=== PATIENT | male | born 1980 | race Caucasian/White ===

== ENCOUNTER 2024-02-06 17:20 | Inpatient (IN) | payer SELFPAY ==
[2024-02-06] MEDS ORDERED: Lorazepam 2 MG/ML VIAL ONE (17:59)
[2024-02-06] MEDS: niCARdipine 50 MG, Admixture Fee 1 EACH in Sodium Chloride 0.9% 250 ML 230 ML IV SCH (19:00)
[2024-02-06] MEDS ORDERED: niCARdipine 25 MG/10 ML SDV ONE (19:14)
[2024-02-06] MEDS ORDERED: Senokot S 8.6-50 MG TAB PO PRN (19:19)
[2024-02-06] MEDS ORDERED: traMADol HCl 50 MG TAB PO PRN (19:19)
[2024-02-06] MEDS ORDERED: niCARdipine 40MG In NaCl 40 MG/200 ML BAG IVPB SCH (19:30)
[2024-02-06 20:17] VITALS: BMI 30.1
[2024-02-06 20:17] LABS: Troponin I 0.066 ng/mL (< 0.028)
[2024-02-06] MEDS ORDERED: Acetaminophen 325 MG TAB ONE (21:21)
[2024-02-06] MEDS ORDERED: Furosemide 40 MG (4 mL) VIAL ONE (21:21)
[2024-02-06] MEDS: Furosemide 40 MG (4 mL) VIAL SLOW IVP SCH (21:27)
[2024-02-06] MEDS: Acetaminophen 325 MG TAB PO PRN (21:27)
[2024-02-06 22:24] LABS: Troponin I 0.078 ng/mL (< 0.028)
[2024-02-06] MEDS ORDERED: Famotidine 20 MG TAB ONE (22:31)
[2024-02-06] MEDS: Famotidine 20 MG TAB PO SCH (22:51)
[2024-02-06 23:05] LABS: Anion Gap 20 mmol/L (10-20); BUN (Urea Nitrogen) 59 mg/dL (8.9-20.6); Calc. Creatinine Clearance 29 mL/min (70-130); Calcium 7.1 mg/dL (7.8-10.44); Carbon Dioxide 17 mmol/L (22-29); Chloride 113 mmol/L (98-107); Estimated GFR 16; Glucose 104 mg/dL (70-105); Phosphorus 5.5 mg/dL (2.3-4.7); Potassium 4.5 mmol/L (3.5-5.1); Sodium 145 mmol/L (136-145)
[2024-02-06] MEDS ORDERED: Heparin 10,000 UNITS/ 10 ML VIAL SLOW IVP SCH (23:45)
[2024-02-07 00:26] LABS: Hemoglobin 11.3 g/dL (14.0-18.0); Platelet Count 418 10x3/uL (130-400)
[2024-02-07] MEDS ORDERED: niCARdipine 25 MG/10 ML SDV ONE (00:42)
[2024-02-07] MEDS ORDERED: traMADol HCl 50 MG TAB ONE (00:46)
[2024-02-07] MEDS: traMADol HCl 50 MG TAB PO PRN ×3 (00:49→19:50)
[2024-02-07] MEDS: Labetalol HCl 100 MG/20 ML VIAL SLOW IVP PRN (03:21)
[2024-02-07 03:36] LABS: %Basophils 0.7 % (0.0-1.0); %Eosinophils 1.6 % (0.0-10.0); %Lymphocytes 21.2 % (21.0-51.0); %Monocytes 7.3 % (0.0-10.0); %Neutrophils 68.8 % (42.0-75.0); Hematocrit 33.1 % (42.0-52.0); Hemoglobin 10.6 g/dL (14.0-18.0); Mean Corpuscular Volume 87.3 fL (78.0-98.0); Mean Platelet Volume 9.3 fL (7.4-10.4); Platelet Count 383 10x3/uL (130-400); RBC Distribution Width 13.2 % (11.5-14.5); Red Blood Cell (RBC) Count 3.79 mill/uL (4.70-6.10)
[2024-02-07 03:52] LABS: Hemoglobin A1c 5.3 % (4.0-6.0)
[2024-02-07 03:56] LABS: INR-International Normal Ratio 1.2; PTT 39.1 sec (22.9-36.1); Prothrombin Time 14.9 sec (12.0-14.7)
[2024-02-07 04:04] LABS: ALT (SGPT) 20 U/L (8-55); AST (SGOT) 20 U/L (5-34); Albumin 3.4 g/dL (3.5-5.0); Alkaline Phosphatase 78 U/L (40-110); Anion Gap 20 mmol/L (10-20); BUN (Urea Nitrogen) 60 mg/dL (8.9-20.6); Bilirubin, Total 0.2 mg/dL (0.2-1.2); Calc. Creatinine Clearance 25 mL/min (70-130); Calcium 6.8 mg/dL (7.8-10.44); Carbon Dioxide 14 mmol/L (22-29); Cardiac Risk 4.3 (Less than 4.5); Chloride 110 mmol/L (98-107); Cholesterol 191 mg/dl (< 200 Desired); Estimated GFR 16; Globulin 3.4 g/dL (2.4-3.5); Glucose 79 mg/dL (70-105); HDL Cholesterol 44 mg/dL (>60 Neg Risk); LDL Cholesterol, Calculated 117 mg/dL; Potassium 4.5 mmol/L (3.5-5.1); Protein, Total 6.8 g/dL (6.0-8.3); Sodium 139 mmol/L (136-145); Triglycerides 152 mg/dL (Less than 150)
[2024-02-07] MEDS: Heparin 25,000 units/D5W 500 ML IVPB SCH (04:08)
[2024-02-07] MEDS: Cyclobenzaprine 10 MG TAB PO SCH (04:52)
[2024-02-07] MEDS: Calcium Carbonate 500 MG ChewTAB PO SCH (04:52)
[2024-02-07] MEDS: Sodium Bicarbonate 150 MEQ in Dextrose 5% in Water 1,000 ML IV SCH (05:15)
[2024-02-07 05:38] LABS: Creatinine, Urine 23.61 mg/dL (63-166)
[2024-02-07] MEDS: Amlodipine 10 MG TAB PO SCH (08:31)
[2024-02-07] MEDS: hydrALAZINE 25 MG TAB PO SCH (10:13)
[2024-02-07 13:40] LABS: Complement-C3 112 mg/dL (83-185); Complement-C4 36 mg/dL (15-53)
[2024-02-07 13:59] LABS: Hep C IgG Ab NONREACTIVE S/CO (NonReactive)
[2024-02-07 16:05] LABS: INR-International Normal Ratio 1.1; Prothrombin Time 14.5 sec (12.0-14.7)
[2024-02-07 16:06] LABS: PTT 51.9 sec (22.9-36.1)
[2024-02-07 16:49] VITALS: BMI 25.9
[2024-02-07] MEDS: Famotidine 20 MG TAB PO SCH (19:49)
[2024-02-08 05:26] LABS: #Basophils 0.11 10x3/uL (0.0-0.2); %Basophils 0.8 % (0.0-1.0); %Eosinophils 2.6 % (0.0-10.0); %Lymphocytes 24.1 % (21.0-51.0); %Monocytes 6.7 % (0.0-10.0); %Neutrophils 65.3 % (42.0-75.0); Hematocrit 33.7 % (42.0-52.0); Mean Corpuscular HGB CONC 32.6 g/dL (32.0-36.0); Mean Corpuscular Hemoglobin 28.2 pg (27.0-31.0); Mean Corpuscular Volume 86.4 fL (78.0-98.0); Mean Platelet Volume 9.9 fL (7.4-10.4); Platelet Count 412 10x3/uL (130-400); RBC Distribution Width 13.5 % (11.5-14.5)
[2024-02-08 05:33] LABS: Anion Gap 18 mmol/L (10-20); BUN (Urea Nitrogen) 54 mg/dL (8.9-20.6); Calc. Creatinine Clearance 23 mL/min (70-130); Calcium 6.9 mg/dL (7.8-10.44); Carbon Dioxide 17 mmol/L (22-29); Chloride 107 mmol/L (98-107); Estimated GFR 14; Glucose 90 mg/dL (70-105); Potassium 4.2 mmol/L (3.5-5.1); Sodium 138 mmol/L (136-145)
[2024-02-08] MEDS ORDERED: CALCIUM GLUC 1 GM/NS 50 ML 1 GM in Premix 1 BAG IVPB SCH (06:00)
[2024-02-08] MEDS: CALCIUM GLUC 1 GM/NS 50 ML 1 GM in Premix 1 BAG IVPB SCH (06:27)
[2024-02-08] MEDS: Calcitriol 0.25 MCG CAP PO SCH (07:57)
[2024-02-08 09:37] LABS: Hep B Surface AG-Rflx Sendout Negative (Negative); Hepatitis B Core Total Negative (Negative); Hepatitis B Surface AB-Sendout Non Reactive (.)
[2024-02-08] MEDS: hydrALAZINE 25 MG TAB PO SCH (14:30)
[2024-02-08] MEDS: Isosorbide Dinitrate 20 MG TAB PO SCH (15:24)
[2024-02-08] MEDS: Ondansetron ODT 4 MG TAB PO PRN (16:24)
[2024-02-08] MEDS: Carvedilol 3.125 MG TAB PO SCH (16:25)
[2024-02-09 04:29] LABS: #Basophils 0.09 10x3/uL (0.0-0.2); %Basophils 0.8 % (0.0-1.0); %Eosinophils 0.7 % (0.0-10.0); %Lymphocytes 16.8 % (21.0-51.0); %Monocytes 5.1 % (0.0-10.0); %Neutrophils 76.2 % (42.0-75.0); Hematocrit 31.3 % (42.0-52.0); Hemoglobin 10.1 g/dL (14.0-18.0); Mean Corpuscular HGB CONC 32.3 g/dL (32.0-36.0); Mean Corpuscular Volume 86.7 fL (78.0-98.0); Mean Platelet Volume 9.3 fL (7.4-10.4); Platelet Count 380 10x3/uL (130-400); RBC Distribution Width 13.2 % (11.5-14.5); Red Blood Cell (RBC) Count 3.61 mill/uL (4.70-6.10)
[2024-02-09 04:46] LABS: Anion Gap 17 mmol/L (10-20); BUN (Urea Nitrogen) 55 mg/dL (8.9-20.6); Calc. Creatinine Clearance 22 mL/min (70-130); Calcium 7.5 mg/dL (7.8-10.44); Carbon Dioxide 19 mmol/L (22-29); Chloride 104 mmol/L (98-107); Estimated GFR 14; Glucose 101 mg/dL (70-105); Potassium 4.9 mmol/L (3.5-5.1); Sodium 135 mmol/L (136-145)
[2024-02-09] MEDS: Aspirin 81 mg Enteric Coated Tablet PO SCH (08:16)
[2024-02-09] MEDS ORDERED: Regadenoson 0.4 MG/5 ML SYRINGE ONE (09:22)
[2024-02-09] MEDS: Lisinopril 5 MG TAB PO SCH (17:06)
[2024-02-09] MEDS: Carvedilol 6.25 MG TAB PO SCH (17:06)
[2024-02-09] MEDS: Cyclobenzaprine 10 MG TAB PO SCH (21:47)
[2024-02-09] MEDS: Calcium Carbonate 500 MG ChewTAB PO SCH (21:48)
[2024-02-10 04:12] LABS: Anion Gap 19 mmol/L (10-20); BUN (Urea Nitrogen) 59 mg/dL (8.9-20.6); Calc. Creatinine Clearance 19 mL/min (70-130); Calcium 7.7 mg/dL (7.8-10.44); Carbon Dioxide 17 mmol/L (22-29); Chloride 105 mmol/L (98-107); Estimated GFR 11; Glucose 77 mg/dL (70-105); Potassium 5.7 mmol/L (3.5-5.1); Sodium 135 mmol/L (136-145)
[2024-02-10] MEDS: LOKELMA 10 GM PACKET PO SCH (08:13)
[2024-02-10] MEDS: Sodium Bicarbonate Tab 325 MG TAB PO SCH ×2 (10:16→15:27)
[2024-02-10] MEDS ORDERED: Senokot 8.6 MG TAB PO PRN (10:24)
[2024-02-10 19:28] LABS: Anion Gap 20 mmol/L (10-20); BUN (Urea Nitrogen) 56 mg/dL (8.9-20.6); Calc. Creatinine Clearance 19 mL/min (70-130); Calcium 7.9 mg/dL (7.8-10.44); Carbon Dioxide 21 mmol/L (22-29); Chloride 98 mmol/L (98-107); Estimated GFR 11; Glucose 125 mg/dL (70-105); Potassium 4.4 mmol/L (3.5-5.1); Sodium 135 mmol/L (136-145)
[2024-02-11 05:19] LABS: Anion Gap 18 mmol/L (10-20); BUN (Urea Nitrogen) 64 mg/dL (8.9-20.6); Calc. Creatinine Clearance 19 mL/min (70-130); Calcium 7.8 mg/dL (7.8-10.44); Carbon Dioxide 18 mmol/L (22-29); Chloride 102 mmol/L (98-107); Estimated GFR 12; Glucose 85 mg/dL (70-105); Potassium 4.4 mmol/L (3.5-5.1); Sodium 134 mmol/L (136-145)
[2024-02-11 12:02] VITALS: BP 136/74; TEMP 97.9
[2024-02-11 14:37] LABS: Metanephrine,Plasma 48.5 pg/mL (0.0-88.0); Normetanephrine,Pl 310.9 pg/mL (0.0-218.9)
[2024-02-12 11:24] LABS: ANA Symphony (Qualitative) Negative (Negative); ANA Symphony (Quantitative) 0.1 Ratio (< 0.7 Negative); dsDNA IgG Antibody 0.7 IU/mL (<10 Negative)
[2024-02-12 12:20] LABS: Cardiolipin IgA Ab 2.8 APL-U/mL (<14 Negative); Cardiolipin IgG Ab 0.9 GPL-U/mL (<10 Negative); Cardiolipin IgM Ab 1.3 MPL-U/mL (<10 Negative); EliA APS New Method **** NEW METHOD ****; beta-2-Glycoprotein I IgA Ab 2.5 U/mL (<7 Negative); beta-2-Glycoprotein I IgG Ab 0.9 U/mL (<7 Negative); beta-2-Glycoprotein I IgM Abs Less than 2.4 U/mL (<7 Negative)
[2024-02-12 13:13] LABS: Albumin-Ur 68.5 % (.); Alpha 1 - Ur 6.4 % (.); Alpha 2 - Ur 8.6 % (.); Beta-Ur 10.5 % (.); Gamma-Ur 5.9 % (.); M-Spike,% Not Observed % (Not Observed); Protein, Urine 136.2 mg/dL (Not Estab.)
[2024-02-12 13:13] LABS: Albumin-Ur 63.6 % (.); Alpha 1 - Ur 6.9 % (.); Alpha 2 - Ur 9.2 % (.); Beta-Ur 12.7 % (.); Gamma-Ur 7.6 % (.); M-Spike,% Not Observed % (Not Observed); Protein, Urine 121.4 mg/dL (Not Estab.)
[2024-02-12 15:13] LABS: Cytoplasmic (C-ANCA) <1:20 titer (Neg:<1:20); Perinuclear (P-ANCA) <1:20 titer (Neg:<1:20)
== END 2024-02-11 15:40 | disposition home or self-care (01) | DRG 291 ==
LOC: ERS 17:20 → ERHOLD 18:25 → 2SE 02-07 03:09
PROVIDERS: ADMIT Student in an Organized Health Care Education/Training Program; ATTEND Internal Medicine
DX: I13.2 Hypertensive heart and chronic kidney disease with heart failure and with stage 5 chronic kidney disease, or end stage renal disease (principal); I50.21 Acute systolic (congestive) heart failure; E87.20 Acidosis, unspecified; I16.1 Hypertensive emergency; N18.5 Chronic kidney disease, stage 5; N17.9 Acute kidney failure, unspecified; N25.81 Secondary hyperparathyroidism of renal origin; I42.9 Cardiomyopathy, unspecified; E87.5 Hyperkalemia; K59.03 Drug induced constipation; T40.425A Adverse effect of tramadol, initial encounter; F12.10 Cannabis abuse, uncomplicated; D64.9 Anemia, unspecified; I34.0 Nonrheumatic mitral (valve) insufficiency; I35.1 Nonrheumatic aortic (valve) insufficiency; I07.1 Rheumatic tricuspid insufficiency; Z88.0 Allergy status to penicillin; Z87.891 Personal history of nicotine dependence
CPT/HCPCS: 36415; 36416; 76770; 78452; 80048; 80053; 80061; 82088; 82306; 82570; 83036; 83835; 83970; 84100; 84156; 84166; 84244; 85025; 85598; 85610; 85613; 85730; 86037; 86038; 86146; 86147; 86160; 86225; 86704; 86706; 86803; 87340; 93005; 93010; 93017; 93306; 93970; 96374; 96375; 97139; A9502; J0613; J1644; J1940; J2060; J2785; J7050; J7070; Q0162